=== PATIENT | male | born 2000 | race Caucasian/White ===

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

== ENCOUNTER 2021-08-22 02:33 | Emergency (ER) | payer BC, MEDICAID ==
[~2021-08-22] VITALS: Ht 190.5 cm; Wt 73.0 kg
[~2021-08-22 02:33] MED LIST changes: +CEPHALEXIN500 M1 PO; +LAMISIL AT1 % EX; +PERMETHRIN5 % EX
[2021-08-22 03:16] LABS: IMMATURE GRANULOCYTES 0.9 % (0.0-5.0); MEAN CORPUSCULAR HGB 29.9 pG CALC (26.0-32.0); MEAN CORPUSCULAR HGB CONC 32.3 g/dL CAL (32.0-36.0); NEUT# 6.19 thou/uL (1.82-7.42); RED BLOOD COUNT 4.18 mill/uL (4.70-6.10); RED CELL DISTRI WIDTH 12.5 % (11.5-15.5)
[2021-08-22 03:17] LABS: HEMATOCRIT 38.7 % (39.0-50.0); HEMOGLOBIN 12.5 g/dl (14.0-18.0); MEAN CELL VOLUME 92.6 fL CALC (80.0-100.0)
[2021-08-22 03:31] LABS: ALKALINE PHOSPHATASE 45 u/l (38-126); BILIRUBIN, TOTAL 0.4 mg/dL (0.0-1.4); BUN 8 mg/dL (9-20); BUN/CREATININE RATIO 7 (12-20 (CALC)); CHLORIDE 106 mmol/l (95-108); CPK 212 u/l (52-200); CREATININE 1.1 mg/dL (0.7-1.3); ETHYL ALCOHOL 0 mg/dl (0-30); GFR > 60 ML/MIN (>=60 (CALC)); GFR FOR AFR.AMER. > 60 ML/MIN (>=60 (CALC)); LIPASE 77 u/l (23-300); POTASSIUM 3.7 mmol/l (3.5-5.1); SODIUM 139 mmol/l (137-146)
[2021-08-22 03:38] LABS: ALBUMIN 3.6 g/dL (3.2-5.0); ANION GAP 21 (6-22 (CALC)); CARBON DIOXIDE 16 mmol/l (22-30); SGOT/AST 36 u/l (17-59); TOTAL PROTEIN 5.8 g/dL (6.3-8.2)
[2021-08-22 03:40] LABS: ACT PARTIAL THROMBO TIME 20.9 SECONDS (20.0-32.5); INTERNATIONAL NORMALIZED RATIO 1.2 RATIO (0.7-1.3); PROTHROMBIN TIME 12.2 SECONDS (9.0-12.5)
[2021-08-22 04:33] LABS: URINE BILIRUBIN - DIPSTICK NEGATIVE (NEGATIVE); URINE BLOOD DIPSTICK SMALL (NEGATIVE); URINE COLOR YELLOW; URINE GLUCOSE - DIPSTICK NEGATIVE (NEGATIVE); URINE KETONE NEGATIVE (NEGATIVE); URINE PROTEIN - DIPSTICK 100 mg/dL (NEG-TRACE); URINE SPECIFIC GRAVITY 1.025; URINE UROBILINOGEN - DIPSTICK 0.2 E.U./dL (0.2)
[2021-08-22 04:40] LABS: URINE NITRITE - DIPSTICK NEGATIVE (Negative)
[2021-08-22 04:41] LABS: URINE LEUK ESTERASE NEGATIVE (NEGATIVE)
[2021-08-22 04:42] LABS: URINE BACTERIA MODERATE hpf; URINE EPITHELIAL CELLS MODERATE EPI/hpf (0-FEW)
[2021-08-22 05:58] VITALS: BP 115/56
== END 2021-08-22 06:13 | disposition home or self-care (01) | DRG 917 ==
LOC: ED 02:33
DX: T60.2X1A Toxic effect of other insecticides, accidental (unintentional), initial encounter (principal); G92.8 Other toxic encephalopathy; F23 Brief psychotic disorder; I95.2 Hypotension due to drugs; F12.10 Cannabis abuse, uncomplicated; Z20.822 Contact with and (suspected) exposure to COVID-19